=== PATIENT | male | born 1985 | race Caucasian/White ===

== ENCOUNTER 2019-04-12 01:14 | Emergency (ER) | payer MEDICAID ==
[~2019-04-12] VITALS: Ht 179.1 cm; Wt 64.5 kg
[2019-04-12 01:25] VITALS: BP 145/105
[2019-04-12] MEDS ORDERED: SULF1TAB49 PO (02:47)
[2019-04-12] MEDS ORDERED: sulfamethoxazole/trimethoprim DS (800/160mg) tablet PO ONE (02:50)
[2019-04-12] MEDS ORDERED: ondansetron 4mg rapidly disintigrating tab PO ONE (02:50)
== END 2019-04-12 03:11 | disposition home or self-care (01) ==
LOC: ER 01:15
DX: S91.311A Laceration without foreign body, right foot, initial encounter (principal); S90.812A Abrasion, left foot, initial encounter; F12.90 Cannabis use, unspecified, uncomplicated; Z79.899 Other long term (current) drug therapy; Z60.2 Problems related to living alone; X58.XXXA Exposure to other specified factors, initial encounter; Y93.89 Activity, other specified; Y92.89 Other specified places as the place of occurrence of the external cause; Y99.8 Other external cause status
CPT/HCPCS: 99283